=== PATIENT | female | born 1975 | race Caucasian/White ===

== ENCOUNTER 2018-03-24 16:52 | Emergency (ER) | payer OTHER, BC ==
[2018-03-24 17:08] VITALS: BP 127/89
[2018-03-24] MEDS ORDERED: LIDOCAINE 5% (700 MG) TRANSDERMAL ADH..PATCH TP ONE (17:34)
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
== END 2018-03-24 17:49 | disposition home or self-care (01) ==
LOC: ER 16:52
DX: S16.1XXA Strain of muscle, fascia and tendon at neck level, initial encounter (principal); S46.911A Strain of unspecified muscle, fascia and tendon at shoulder and upper arm level, right arm, initial encounter; R51 Headache; M25.511 Pain in right shoulder; M54.2 Cervicalgia; M79.601 Pain in right arm; V87.7XXA Person injured in collision between other specified motor vehicles (traffic), initial encounter; F17.210 Nicotine dependence, cigarettes, uncomplicated
CPT/HCPCS: 99283